=== PATIENT | male | born 1935 | race Caucasian/White ===

== ENCOUNTER 2020-02-23 11:36 | Inpatient (IN) ==
[2020-02-23] MEDS ORDERED: SODIUM CHLORIDE 0.9% 1000ML 1,000 ML IV SCH (12:00)
--- NOTE | 2020-02-23 12:04 | Emergency Department Note ---
Impression & Plan Acute respiratory failure with hypoxia, Afib, COVID-19, Pulmonary embolism ED Provider Note Provider: Ricci Mccurdy MD DATE OF SERVICE:02/23/2020 CHIEF COMPLAINT: Shortness of breath, weakness HISTORY OF PRESENT ILLNESS: Patient is a 84-year-old gentleman history of seizures maintained on phenobarb and Dilantin presenting here today via ambulance from home due to weakness and shortness of breath. Per the patient and the patient's over the past week he has been feeling more weak and had decreased intake. Her approximate last 2 to 3 days has had some shortness of breath and a slightly productive cough with vences sputum. reports that 2 days ago had a very brief seizure but that was not that abnormal for him. Is otherwise been taking his medications but not eating or drinking much. She discussed with him coming to the hospital yesterday but he declined until this morning. EMS reports the patient was found to be 80% on room air and was given a nebulizer of albuterol as well as 2 breathing prior to arrival here in the emergency department. He is satting in the low 90s on nonrebreather for them. Patient denies significant pain at this time. No fevers reported. Questionable sick contact in the family. No known Covid contacts reported. Patient was self with his respiratory issues is not the best historian. Difficult to obtain extensive history from the patient due to BiPAP mask and his difficulty hearing. REVIEW OF SYSTEMS: A total of 10 review of systems was obtained and negative except as stated above in the HPI. PAST MEDICAL HISTORY: As noted above MEDICATIONS: Reviewed home medications includes phenobarbital and Dilantin SOCIAL HISTORY: Lives at home with PHYSICAL EXAM: GENERAL: alert and oriented on stretcher with a nonrebreather, quite hard of hearing Head: normocephalic and atraumatic EYES: No injection, discharge or icterus. NECK: Trachea midline. ENT: Mucous membranes pink and moist. LUNGS: Airway patent. Mild increased work of breathing and tachypnea. Breath sounds diminished in the bases HEART: Regular rate and rhythm. No chest wall tenderness ABDOMEN: Soft and non-tender, without guarding or rebound. No massess SKIN: Acyanotic, warm, dry, without rashes EXTREMITIES: Without swelling, tenderness or deformity NEUROLOGICAL: No focal deficits. No aphasia. No facial droop or slurred speech. EK bpm atrial fibrillation. No PVCs noted. No acute ST segment elevation noted. QTc mildly prolonged. CONTINUOUS CARDIAC MONITORING: was ordered and showed a heart rate of 90 bpm in atrial fibrillation Patient's laboratory studies and imaging reviewed. Differential includes Infection, dehydration, metabolic abnormality, hypo/hyperglycemia, electrolyte disturbance, anemia, hypoxia, cardiac sources, intracerebral event, toxicologic, neurologic, as well as other pathologies. IMPRESSION/MEDICAL DECISION MAKING: Patient presents with a week of weakness 70s or shortness of breath now hypoxic requiring BiPAP due to his increased work of breathing and low oxygen levels on nonrebreather. Broad differential was entertained. Chest x-ray was ordered as well VBG, D-dimer to help exclude PE, basic labs, lactate, blood cultures, influenza testing, and rapid Covid testing. Patient does not appear to focal deficits. Patient does not appear meningitic. No fever upon arrival here 98.6 orally. Chest x-ray chest x-ray per radiology my review shows bilateral central pulmonary opacities concerning for multifocal pneumonitis. Patient does have a leukocytosis of 12. Given his respiratory issues requiring BiPAP did give an empiric dose of ceftriaxone for antibiotic coverage. Mild hyponatremia is noted . No significant renal dysfunction is noted. Mild AST and ALT elevation is noted. Phenobarb and phenytoin levels are just slightly subtherapeutic. Negative influenza testing. VBG without significant acidosis or hypercarbia. Lactate not elevated. Troponin is not elevated. EKG shows rate controlled atrial fibrillation. The chart does list a history of atrial fibrillation but the patient's not currently on anticoagulation or rate control medications. Testing returns testing returns positive for coronavirus. D-dimer is significantly elevated. Given the report of a seizure while he does not appear meningitic at this time I think is likely related to his underlying seizure disorder, with his reported headache will complete a CT of the head as well as a CT angio of the chest to exclude intracranial bleed and evaluate possible PE in the lungs that could be contributing. CT the head without acute intracranial bleed. Do not believe some mastoid effusion is contributing to current illness. CT of the chest with bilateral PEs we will start the patient on Lovenox at this point. Hospitalist was alerted for admission aware of these issues. Family was updated via phone. Patient has relayed to the hospitalist that he would like to be DNR/DNI. DIAGNOSIS: Acute hypoxic respiratory failure, coronavirus, atrial fibrillation, bilateral pulmonary embolisms DISPOSITION: Hospitalist will evaluate Critical Care I have personally spent 44 minutes of critical care time in the direct management of this patient. This includes bedside care, interpretation of diagnostic studies, and testing, discussion with consultants, patient, and family members, and other required patient management activities. These 44 minutes is in excess of all separately billable procedures. Past Med/Surg History Medical History (Updated 02/23/20 @ 14:16 by Ricci Mccurdy M.D.) No pertinent past medical history Surgical History History of tonsillectomy Allergies Allergies Allergy/AdvReac Type Severity Reaction Status Date / Time No Known Allergies Allergy Verified 06/01/19 14:34 Home Meds Home Medications Medication Instructions Recorded Confirmed melatonin 2.5 mg-pyridoxal 1 tab SUBLINGUAL QPM PRN tab 11/01/18 02/23/20 phosphate(vit B6) 338 mcg sublingual tablet phenytoin sodium extended 100 mg PO QAM 02/23/20 02/23/20 phenytoin sodium extended 200 mg PO QPM 02/23/20 02/23/20 Previous Rx's Medication Instructions Recorded lorazepam 0.5 mg tablet 0.5 mg PO DAILY PRN #30 tab 11/01/18 phenobarbital 32.4 mg tablet 64.8 mg PO DAILY #60 tab 10/11/19 Results & Data (ED) Vital Signs Vital Signs - 24 hr 02/23/20 11:40 02/23/20 11:50 02/23/20 12:00 Temperature Temperature Source Pulse Rate 96 H 101 H 108 H Pulse Rate from SpO2 Sensor 97 H 102 H Respiratory Rate 28 H 30 H 25 H Respiratory Effort / Characteristics Spontaneous Short of Breath Respiratory Depth Normal Respiratory Pattern Tachypnea Blood Pressure 134/76 125/76 Blood Pressure Mean 92 84 Pulse Oximetry 90 95 93 Oxygen Delivery Method BiPAP BiPAP Oxygen Flow Rate Fraction of Inspired Oxygen 50 Sepsis New/Unexplained Change in Mental Status Sepsis Action Taken by Nursing 02/23/20 12:04 02/23/20 13:00 02/23/20 13:30 Temperature 37.0 C Temperature Source Oral Pulse Rate 90 100 H 96 H Pulse Rate from SpO2 Sensor 87 88 Respiratory Rate 34 H 30 H 28 H Respiratory Effort / Characteristics Labored Respiratory Depth Respiratory Pattern Tachypnea Blood Pressure 125/76 129/76 114/71 Blood Pressure Mean 92 88 81 Pulse Oximetry 94 91 Oxygen Delivery Method Non-rebreather BiPAP Oxygen Flow Rate 15 Fraction of Inspired Oxygen Sepsis New/Unexplained Change in Mental Status Yes Sepsis Action Taken by Nursing Physician Notified 02/23/20 14:00 Temperature Temperature Source Pulse Rate 78 Pulse Rate from SpO2 Sensor 82 Respiratory Rate 26 H Respiratory Effort / Characteristics Respiratory Depth Respiratory Pattern Blood Pressure 128/67 Blood Pressure Mean 78 Pulse Oximetry 91 Oxygen Delivery Method BiPAP Oxygen Flow Rate Fraction of Inspired Oxygen Sepsis New/Unexplained Change in Mental Status Sepsis Action Taken by Nursing Laboratory Data Result diagrams: 02/23/20 12:00 02/23/20 12:00 Lab Results 02/23/20 02/23/20 02/23/20 Range/Units 11:50 11:50 12:00 WBC 12.67 H (4.8-10.8) K/uL RBC 3.71 L (4.7-6.1) M/uL Hgb 12.5 L (14.0-18.0) g/dL Hct 35.8 L (42-52) % MCV 96.5 (80-100) fL MCH 33.7 (25-34) pg MCHC 34.9 (32-36) g/dL RDW Std Deviation 45.5 (36.4-46.3) fL RDW Coeff of Theron 12.9 (11.5-14.5) % Plt Count 210 (130-400) K/uL MPV 11.0 H (7.4-10.4) fL Immature Gran % (Auto) 0.6 % Neut % (Auto) 74.4 % Lymph % (Auto) 17.6 % Monona % (Auto) 7.1 % Eos % (Auto) 0.1 % Baso % (Auto) 0.2 % Neut # (Auto) 9.44 H (1.4-6.5) K/uL Lymph # (Auto) 2.23 (1.2-3.4) K/uL Monona # (Auto) 0.90 H (0.11-0.59) K/uL Eos # (Auto) 0.01 (0-0.5) K/uL Baso # (Auto) 0.02 (0-0.2) K/uL Immature Gran # (Auto) 0.07 H (0.00-0.02) K/uL PT (9.0-12.0) Seconds INR (0.9-1.1) APTT (21.0-31.0) Seconds PTT Ratio D-Dimer (0-500) ug/L FEU VBG pH (7.36-7.41) VBG pCO2 (38-50) mmHg VBG pO2 mmHg VBG HCO3 mmol/L VBG O2 Saturation % VBG Base Excess mEq/L Barometric Pressure mm/Hg Sodium (136-145) mmol/L Potassium (3.5-5.1) mmol/L Chloride (98-107) mmol/L Carbon Dioxide (21-32) mmol/L Anion Gap (3-11) BUN (7-18) mg/dl Creatinine (0.6-1.4) mg/dl Est Cr Clr Drug Dosing Est GFR ( Amer) Est GFR (Non-Af Amer) BUN/Creatinine Ratio (10-20) Glucose (70-99) mg/dl Lactate (0.4-2.0) mmol/L Calcium (8.5-10.1) mg/dl Magnesium (1.8-2.4) mg/dl Total Bilirubin (0.2-1) mg/dl AST (15-37) U/L ALT (12-78) U/L Alkaline Phosphatase (45-117) U/L Troponin I (0-0.045) ng/ml Total Protein (6.4-8.2) gm/dl Albumin (3.4-5.0) gm/dl Globulin (2.5-4.0) gm/dl Albumin/Globulin Ratio (0.9-2) Procalcitonin (0-0.5) ng/ml Phenytoin (10-20) mcg/ml Phenobarbital (15-40) mcg/mL COVID-19 Eval Order Covid19 Done at [facility] COVID-19 PCR POSITIVE A* (Negative) Influ A Molecular Assay (Negative) Influ B Molecular Assay (Negative) 02/23/20 02/23/20 02/23/20 Range/Units 12:00 12:00 12:00 WBC (4.8-10.8) K/uL RBC (4.7-6.1) M/uL Hgb (14.0-18.0) g/dL Hct (42-52) % MCV (80-100) fL MCH (25-34) pg MCHC (32-36) g/dL RDW Std Deviation (36.4-46.3) fL RDW Coeff of Theron (11.5-14.5) % Plt Count (130-400) K/uL MPV (7.4-10.4) fL Immature Gran % (Auto) % Neut % (Auto) % Lymph % (Auto) % Monona % (Auto) % Eos % (Auto) % Baso % (Auto) % Neut # (Auto) (1.4-6.5) K/uL Lymph # (Auto) (1.2-3.4) K/uL Monona # (Auto) (0.11-0.59) K/uL Eos # (Auto) (0-0.5) K/uL Baso # (Auto) (0-0.2) K/uL Immature Gran # (Auto) (0.00-0.02) K/uL PT 11.8 (9.0-12.0) Seconds INR 1.1 (0.9-1.1) APTT 28.8 (21.0-31.0) Seconds PTT Ratio 1.0 D-Dimer [id number] H* (0-500) ug/L FEU VBG pH (7.36-7.41) VBG pCO2 (38-50) mmHg VBG pO2 mmHg VBG HCO3 mmol/L VBG O2 Saturation % VBG Base Excess mEq/L Barometric Pressure mm/Hg Sodium 131 L (136-145) mmol/L Potassium 3.9 (3.5-5.1) mmol/L Chloride 94 L (98-107) mmol/L Carbon Dioxide 25 (21-32) mmol/L Anion Gap 13.0 H (3-11) BUN 24 H (7-18) mg/dl Creatinine 1.02 (0.6-1.4) mg/dl Est Cr Clr Drug Dosing Not Reportable Est GFR ( Amer) 77.9 Est GFR (Non-Af Amer) 67.2 BUN/Creatinine Ratio 23.1 H (10-20) Glucose 113 H (70-99) mg/dl Lactate (0.4-2.0) mmol/L Calcium 8.8 (8.5-10.1) mg/dl Magnesium 2.5 H (1.8-2.4) mg/dl Total Bilirubin 0.5 (0.2-1) mg/dl AST 150 H (15-37) U/L ALT 109 H (12-78) U/L Alkaline Phosphatase 100 (45-117) U/L Troponin I < 0.015 (0-0.045) ng/ml Total Protein 7.3 (6.4-8.2) gm/dl Albumin 2.4 L (3.4-5.0) gm/dl Globulin 4.9 H (2.5-4.0) gm/dl Albumin/Globulin Ratio 0.5 L (0.9-2) Procalcitonin (0-0.5) ng/ml Phenytoin 7.7 L (10-20) mcg/ml Phenobarbital 14.3 L (15-40) mcg/mL COVID-19 Eval Order COVID-19 PCR (Negative) Influ A Molecular Assay (Negative) Influ B Molecular Assay (Negative) 02/23/20 02/23/20 02/23/20 Range/Units 12:00 12:09 12:09 WBC (4.8-10.8) K/uL RBC (4.7-6.1) M/uL Hgb (14.0-18.0) g/dL Hct (42-52) % MCV (80-100) fL MCH (25-34) pg MCHC (32-36) g/dL RDW Std Deviation (36.4-46.3) fL RDW Coeff of Theron (11.5-14.5) % Plt Count (130-400) K/uL MPV (7.4-10.4) fL Immature Gran % (Auto) % Neut % (Auto) % Lymph % (Auto) % Monona % (Auto) % Eos % (Auto) % Baso % (Auto) % Neut # (Auto) (1.4-6.5) K/uL Lymph # (Auto) (1.2-3.4) K/uL Monona # (Auto) (0.11-0.59) K/uL Eos # (Auto) (0-0.5) K/uL Baso # (Auto) (0-0.2) K/uL Immature Gran # (Auto) (0.00-0.02) K/uL PT (9.0-12.0) Seconds INR (0.9-1.1) APTT (21.0-31.0) Seconds PTT Ratio D-Dimer (0-500) ug/L FEU VBG pH 7.38 (7.36-7.41) VBG pCO2 44 (38-50) mmHg VBG pO2 28 mmHg VBG HCO3 26 mmol/L VBG O2 Saturation < 60.0 % VBG Base Excess 0.5 mEq/L Barometric Pressure 737.5 mm/Hg Sodium (136-145) mmol/L Potassium (3.5-5.1) mmol/L Chloride (98-107) mmol/L Carbon Dioxide (21-32) mmol/L Anion Gap (3-11) BUN (7-18) mg/dl Creatinine (0.6-1.4) mg/dl Est Cr Clr Drug Dosing Est GFR ( Amer) Est GFR (Non-Af Amer) BUN/Creatinine Ratio (10-20) Glucose (70-99) mg/dl Lactate 1.8 (0.4-2.0) mmol/L Calcium (8.5-10.1) mg/dl Magnesium (1.8-2.4) mg/dl Total Bilirubin (0.2-1) mg/dl AST (15-37) U/L ALT (12-78) U/L Alkaline Phosphatase (45-117) U/L Troponin I (0-0.045) ng/ml Total Protein (6.4-8.2) gm/dl Albumin (3.4-5.0) gm/dl Globulin (2.5-4.0) gm/dl Albumin/Globulin Ratio (0.9-2) Procalcitonin 0.26 (0-0.5) ng/ml Phenytoin (10-20) mcg/ml Phenobarbital (15-40) mcg/mL COVID-19 Eval Order COVID-19 PCR (Negative) Influ A Molecular Assay (Negative) Influ B Molecular Assay (Negative) 02/23/20 Range/Units Unknown WBC (4.8-10.8) K/uL RBC (4.7-6.1) M/uL Hgb (14.0-18.0) g/dL Hct (42-52) % MCV (80-100) fL MCH (25-34) pg MCHC (32-36) g/dL RDW Std Deviation (36.4-46.3) fL RDW Coeff of Theron (11.5-14.5) % Plt Count (130-400) K/uL MPV (7.4-10.4) fL Immature Gran % (Auto) % Neut % (Auto) % Lymph % (Auto) % Monona % (Auto) % Eos % (Auto) % Baso % (Auto) % Neut # (Auto) (1.4-6.5) K/uL Lymph # (Auto) (1.2-3.4) K/uL Monona # (Auto) (0.11-0.59) K/uL Eos # (Auto) (0-0.5) K/uL Baso # (Auto) (0-0.2) K/uL Immature Gran # (Auto) (0.00-0.02) K/uL PT (9.0-12.0) Seconds INR (0.9-1.1) APTT (21.0-31.0) Seconds PTT Ratio D-Dimer (0-500) ug/L FEU VBG pH (7.36-7.41) VBG pCO2 (38-50) mmHg VBG pO2 mmHg VBG HCO3 mmol/L VBG O2 Saturation % VBG Base Excess mEq/L Barometric Pressure mm/Hg Sodium (136-145) mmol/L Potassium (3.5-5.1) mmol/L Chloride (98-107) mmol/L Carbon Dioxide (21-32) mmol/L Anion Gap (3-11) BUN (7-18) mg/dl Creatinine (0.6-1.4) mg/dl Est Cr Clr Drug Dosing Est GFR ( Amer) Est GFR (Non-Af Amer) BUN/Creatinine Ratio (10-20) Glucose (70-99) mg/dl Lactate (0.4-2.0) mmol/L Calcium (8.5-10.1) mg/dl Magnesium (1.8-2.4) mg/dl Total Bilirubin (0.2-1) mg/dl AST (15-37) U/L ALT (12-78) U/L Alkaline Phosphatase (45-117) U/L Troponin I (0-0.045) ng/ml Total Protein (6.4-8.2) gm/dl Albumin (3.4-5.0) gm/dl Globulin (2.5-4.0) gm/dl Albumin/Globulin Ratio (0.9-2) Procalcitonin (0-0.5) ng/ml Phenytoin (10-20) mcg/ml Phenobarbital (15-40) mcg/mL COVID-19 Eval Order COVID-19 PCR (Negative) Influ A Molecular Assay Negative (Negative) Influ B Molecular Assay Negative (Negative) Administered Medications Discontinued Medications Dexamethasone (Dexamethasone Sod Inj 10 Mg/Ml Vial) 6 mg IV NOW ONE Stop: 02/23/20 12:51 Last Admin: 02/23/20 13:10 Dose: 6 mg Documented by: [id number] Sodium Chloride (Nss 1000ml) 1,000 mls @ 999 mls/hr IV .Q1H1M NANO Stop: 02/23/20 13:00 Last Admin: 02/23/20 13:10 Dose: 999 mls/hr Documented by: [id number] Ceftriaxone Sodium (Rocephin) 1,000 mg in 50 mls @ 100 mls/hr IV NOW STA Stop: 02/23/20 13:19 Last Infusion: 02/23/20 14:01 Dose: 0 mls/hr Documented by: [id number] Admin: 02/23/20 13:10 Dose: 100 mls/hr Documented by: [id number] Ioversol (Optiray 320 125ml) 120 ml IV ONCE ONE Stop: 02/23/20 13:43 Last Admin: 02/23/20 13:43 Dose: 120 ml Documented by: [id number] Discharge Plan Visit Data Chief Complaint: Shortness of Breath/Dyspnea Stated Complaint: weakness ED Provider: Ricci Mccurdy Discharge Problem: Acute respiratory failure with hypoxia, Afib, COVID-19, Pulmonary embolism Patient Disposition: Admitted As Inpatient Condition: Critical Forms Stand Alone Forms: My [employer] Prescriptions Prescriptions: No Action phenobarbital 32.4 mg tablet 64.8 mg PO DAILY Qty: 60 RF: 5 melatonin-pyridoxal phos (B6) [Melatonin-B6 (pyridoxal phos)] 2.5 mg- 338 mcg tablet, sublingual 1 tab sublingual QPM PRN (Reason: Insomnia) RF: 0 lorazepam 0.5 mg tablet 0.5 mg PO DAILY PRN (Reason: anxiety) Qty: 30 RF: 0 phenytoin sodium extended 100 mg capsule 200 mg PO QPM RF: 0 phenytoin sodium extended 100 mg capsule 100 mg PO QAM RF: 0 Referrals Referrals: Anne Escobar CRNP [Primary Care Provider] - Discharge Problem: Afib Qualifiers: Atrial fibrillation type: unspecified Qualified Code(s): I48.91 - Unspecified atrial fibrillation Pulmonary embolism Qualifiers: Pulmonary embolism type: unspecified Chronicity: acute Acute cor pulmonale presence: unspecified Qualified Code(s): I26.99 - Other pulmonary embolism without acute cor pulmonale
[2020-02-23 12:22] LABS: Base Excess VBG 0.5 mEq/L; HCO3 VBG 26 mmol/L; Oxygen Saturation VBG < 60.0 %; PCO2 VBG 44 mmHg (38-50); PO2 VBG 28 mmHg; pH VBG 7.38 (7.36-7.41)
--- NOTE | 2020-02-23 12:28 | XRay Report ---
XR chest 1V portable CLINICAL HISTORY: SEPSIS COMPARISON STUDY: 05/13/2015 FINDINGS: The heart is normal in size. There are bilateral interstitial opacities suspicious for a mu ltifocal pneumonitis. There are no significant pleural effusions. Clinical and radiographic follow-up is recommended.[ IMPRESSION: 1. Bilateral interstitial pulmonary opacities, suspicious for a multifocal pneumonitis. An atypical a ppearance of interstitial pulmonary edema could appear similar but is felt to be statistically less l ikely. Clinical and radiographic follow-up recommended. ACT 112: Negative or not required by law. Electronically signed by: Saurabh Hutchins M.D. 02/23/2020 12:26 PM
[2020-02-23 12:32] LABS: Basophils # (auto) 0.02 K/uL (0-0.2); Basophils % (auto) 0.2 %; Eosinophils # (auto) 0.01 K/uL (0-0.5); Eosinophils % (auto) 0.1 %; Hematocrit (blood only) 35.8 % (42-52); Hemoglobin 12.5 g/dL (14.0-18.0); Immature Granulocytes # (auto) 0.07 K/uL (0.00-0.02); Immature Granulocytes % (auto) 0.6 %; Lymphocytes # (auto) 2.23 K/uL (1.2-3.4); Lymphocytes % (auto) 17.6 %; Mean Corpuscular Hemoglobin 33.7 pg (25-34); Mean Corpuscular Hgb Conc 34.9 g/dL (32-36); Mean Corpuscular Volume 96.5 fL (80-100); Monocytes % (auto) 7.1 %; Neutrophils # (auto) 9.44 K/uL (1.4-6.5); Neutrophils % (auto) 74.4 %; Platelet Count 210 K/uL (130-400); RDW Coefficient of Variation 12.9 % (11.5-14.5); RDW Standard Deviation 45.5 fL (36.4-46.3); Red Blood Count 3.71 M/uL (4.7-6.1); White Blood Count 12.67 K/uL (4.8-10.8)
[2020-02-23 12:44] LABS: Influenza A virus by PCR Negative (Negative); Influenza B virus by PCR Negative (Negative)
[2020-02-23 12:47] LABS: INR 1.1 (0.9-1.1); Partial Thromboplastin Time 28.8 Seconds (21.0-31.0); Prothrombin Time 11.8 Seconds (9.0-12.0)
[2020-02-23 12:50] LABS: Alanine Aminotransferase 109 U/L (12-78); Albumin Level 2.4 gm/dl (3.4-5.0); Aspartate Aminotransferase 150 U/L (15-37); BUN Creatinine Ratio 23.1 (10-20); Blood Urea Nitrogen 24 mg/dl (7-18); Calcium 8.8 mg/dl (8.5-10.1); Carbon Dioxide 25 mmol/L (21-32); Chloride 94 mmol/L (98-107); Est GFR (African American) 77.9; Est GFR (Non-African American) 67.2; Glucose 113 mg/dl (70-99); Magnesium 2.5 mg/dl (1.8-2.4); Potassium 3.9 mmol/L (3.5-5.1); Sodium 131 mmol/L (136-145)
[2020-02-23] MEDS ORDERED: cefTRIAXone SODIUM 1,000 MG/50 ML BAG IV STA (12:50)
[2020-02-23] MEDS ORDERED: DEXAMETHASONE SOD INJ 10 MG/ML VIAL IV ONE (12:50)
[2020-02-23 12:55] LABS: Albumin Globulin Ratio 0.5 (0.9-2); Alkaline Phosphatase 100 U/L (45-117); Bilirubin,Total 0.5 mg/dl (0.2-1); Globulin 4.9 gm/dl (2.5-4.0); Phenytoin (Dilantin) 7.7 mcg/ml (10-20); Total Protein 7.3 gm/dl (6.4-8.2); Troponin I < 0.015 ng/ml (0-0.045)
[2020-02-23 13:13] LABS: D Dimer 17040 ug/L FEU (0-500)
[2020-02-23] MEDS ORDERED: OPTIRAY 320 125ml IV ONE (13:42)
--- NOTE | 2020-02-23 14:01 | CT Scan Report ---
CT head/brain wo con CLINICAL HISTORY: headache, seizure COMPARISON STUDY: MRI dated 05/13/2015 TECHNIQUE: Axial CT of the brain is performed from the vertex to the skull base. IV contrast was not administered for this examination. A dose lowering technique was utilized adhering to the principles of ALARA. CT DOSE: FINDINGS: No intra or extra-axial mass lesions are visualized. There is no CT evidence of acute cortical infarc tion. There is no evidence of midline shift. There is no acute hemorrhage. No calvarial fractures ar e visualized. There are patchy white matter hypodensities likely on a small vessel basis. There is no evidence of pathologic ventricular dilatation. There is bilateral maxillary sinus mucosal disease. There is a left mastoid effusion. There is fluid within the left middle ear cavity. IMPRESSION: 1. No acute intracranial findings 2. Left mastoid effusion. Fluid within the left middle ear cavity. ACT 112: Negative or not required by law. Electronically signed by: Saurabh Hutchins M.D. 02/23/2020 2:00 PM
--- NOTE | 2020-02-23 14:07 | CT Scan Report ---
CT ANGIOGRAM OF THE CHEST CLINICAL HISTORY: PE, COVID+, +dimer, sob hypoxia COMPARISON STUDY: Chest x-ray dated 02/23/2020 TECHNIQUE: Following the IV administration of 120 mL of Optiray-320, CT angiogram of the thorax was p erformed from the thoracic inlet to the lung bases utilizing the pulmonary embolus protocol. Images a re reviewed in the axial, sagittal, and coronal planes. IV contrast was administered without complica tion. MIP imaging was performed. A dose lowering technique was utilized adhering to the principles o f ALARA. CT DOSE: 882.54 mGy.cm FINDINGS: No pathologically enlarged axillary mediastinal or hilar lymph nodes were visualized. There is mild dilatation of the ascending thoracic aorta which measures 4 cm. There are bilateral pulmonary artery filling defects indicative of acute pulmonary embolism. There are small pleural effusions. There are bilateral groundglass pulmonary opacities, likely second elin to a pneumonitis. The bones are osteopenic. There is an L1 and T7 vertebral body compression fracture. These are likely old. IMPRESSION: 1. Acute bilateral pulmonary embolism 2. Small bilateral pleural effusions 3. Bilateral groundglass pulmonary opacities, likely secondary to a multifocal pneumonitis 4. Mild dilatation of ascending thoracic aorta which measures 4 cm ACT 112: Negative or not required by law. Electronically signed by: Saurabh Hutchins M.D. 02/23/2020 2:06 PM
[2020-02-23] MEDS ORDERED: ENOXAPARIN 100 MG/1ML SYR SQ STA (14:16)
[2020-02-23] MEDS ORDERED: LORazepam 1 MG/2 ML VIAL IV PRN (16:10)
[2020-02-23] MEDS ORDERED: LORazepam 0.5 MG TAB PO PRN (16:10)
[2020-02-23] MEDS ORDERED: ONDANSETRON INJ 2 MG/ML 2 ML VIAL IV PRN (16:10)
[2020-02-23] MEDS ORDERED: AZITHROMYCIN 250 MG TAB PO ONE (17:00)
[2020-02-23] MEDS ORDERED: REMDESIVIR 200 MG in SODIUM CHLORIDE 0.9% 210 ML IV ONE (17:00)
--- NOTE | 2020-02-23 17:05 | History & Physical Report ---
Date of Service February 23, 2020 Assessment & Plan (1) COVID-19: Qualifies as severe as he is on BiPap with increased work of breathing. - Dexamethasone, remdesivir, and convalescent plama all ordered. Discussed plasma with daughter and son-in-law who are in agreement. is unavailable as she does not have a telephone in her house. - Please call Niranjan Pemberton (son-in-law) whose is Melvi at [phone] for updates. This is the only phone number that should be consistently answered. - Supplemental O2 PRN; presently requiring non-rebreather and BiPap. - Patient is DNR/DNI. This was confirmed with him and daughter & son-in-law who report it is consistent with prior wishes. - Also treating with ceftriaxone & azithromycin for superimposed CAP. - MRSA swab pending (2) Pulmonary embolism: CTA chest on 02/22 shows acute bilateral PEs. - Lovenox given in the ED - Continue Lovenox 70 mg SQ BID - TTE for right-heart strain (3) Afib: EKG on admission shows afib with controlled rate. Unclear what duration of this is. - Lovenox as above for anticoagulation for PEs - Monitor HRs; not on any rate-control at home (4) Seizure disorder: reported he had a potential seizure earlier this week. Phenytoin level and phenobarbital levels both below therapeutic ranges. - Continue home phenytoin and phenobarbital as compliance is unclear. - Ativan PRN (5) Hepatitis: LFTs are 150/109. Normal Tbili and alk phos. Possibly mild hepatitis from Covid. Discussed with pharmacy and this does not preclude remdesivir. - Monitor (6) Hyponatremia: Na was 131 on admission. Seems stable from a prior Na in 2019. 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 Mild and chronic enough that I doubt it is a major clinical concern at present. - Monitor (7) Dementia: Per , has some memory issues. For me, he knows self and that he is in a hospital in [place]. Unclear if this is his baseline. - Monitor Admission and Anticipated Discharge Date Admission Date: February 23, 2020 History of Present Illness Primary Care Provider: FRANCK Fuchs 84yo M w/ hx of seizures who presents for Covid pneumonia. He has dementia and a poor historian. Per report from the ED provider who gathered the history from his , he had not been feeling well for about 1 week, then this morning reported increasing shortness of breath and was brought to the hospital. Initially, it sounds as though he was fairly lethargic, though he was able to wake up for me. He was able to tell me he was in a hospital in [place] and his name. He denies fevers or chills, but does report shortness of breath that he denies has significantly improved while on BiPap. I was unable to speak to the because she does not have access to a telephone in her house, but did confirm these details with one of his daughters and son-in-law. Allergies Allergy/AdvReac Type Severity Reaction Status Date / Time No Known Allergies Allergy Verified 06/01/19 14:34 Home Medications Home Medications Medication Instructions Recorded Confirmed Type lorazepam 0.5 mg tablet 0.5 mg PO DAILY PRN #30 tab 11/01/18 02/23/20 Rx melatonin 2.5 mg-pyridoxal 1 tab SUBLINGUAL QPM PRN tab 11/01/18 02/23/20 History phosphate(vit B6) 338 mcg sublingual tablet phenobarbital 32.4 mg tablet 64.8 mg PO DAILY #60 tab 10/11/19 02/23/20 Rx phenytoin sodium extended 100 mg PO QAM 02/23/20 02/23/20 History phenytoin sodium extended 200 mg PO QPM 02/23/20 02/23/20 History Past Med/Surg History Medical History Afib Seizure disorder Surgical History History of tonsillectomy Family History Other Family history non-contributory Social History Smoking Status: Never smoker Second Hand Exposure: No; Do You Dip or Chew Tobacco: No; Tobacco Cessation Education Requested by Patient: No Hx Alcohol Use: No Hx Substance Use: No Preferred Language: Hong Konger Communication Ability: Effective Coordinator Of Online Programs Required: No Beliefs That Will Affect Care: None Current Living Situation Comment: unk Other Information That Helps Us Care for You: No Feels Safe at Home: Yes Safety Concerns: Feels Safe At This Time Assistive Devices: Oxygen - Continuous Review of Systems Review of Systems: All systems reviewed & are unremarkable except as noted in HPI & below Physical Exam Constitutional: WD/WN, vitals as above + acute distress and + lethargic Eyes: EOM intact bilaterally; no conjunctival abnormality ENMT: external ear and nose normal, oropharynx normal Neck: trachea midline, no thyromegaly normal visual inspection Respiratory: + respiratory distress and + tachypneic; no cough Auscultation: + crackles; no wheezes Cardiovascular: RRR, no murmur, no edema Gastrointestinal (Abdomen): Inspection/Auscultation: abdomen normal to inspection; abdomen not distended Musculoskeletal: no cyanosis or clubbing, extremities motor strength 5/5 Skin: no rashes, warm and dry Neurologic: moves all extremities and awake Psychiatric: Orientation: oriented to person, oriented to place and cooperative; + not alert Results & Data Results & Data ([facility]) Vital Signs (Past 12 Hours) Vital Signs Temp Pulse Resp BP Pulse Ox 02/23/20 16:20 76 02/23/20 15:55 81 31 H 94 02/23/20 15:00 84 18 114/67 95 02/23/20 14:30 100 H 24 123/68 93 02/23/20 14:00 78 27 H 128/67 94 02/23/20 13:30 96 H 28 H 114/71 91 02/23/20 13:00 100 H 30 H 129/76 02/23/20 12:04 37.0 C 90 34 H 125/76 94 02/23/20 12:00 108 H 25 H 125/76 93 02/23/20 11:50 101 H 36 H 95 02/23/20 11:40 96 H 28 H 134/76 90 PG Care Time/CCT Total # of Minutes Spent Total Time Spent with Patient: Total time spent is greater than 50% in coordination of care (as documented) at patient's floor/unit and/or counseling patient: Coding Level of Care Code 59547 Initial Inpt Care Lvl 3 Diagnoses COVID-19 U07.1 Pulmonary embolism I26.99 Acute cor pulmonale presence: unspecified Chronicity: acute Pulmonary embolism type: unspecified Afib I48.91 Atrial fibrillation type: unspecified Seizure disorder G40.909 Hepatitis K75.9 Hyponatremia E87.1 Dementia F03.90 (1) Pulmonary embolism Acute cor pulmonale presence: unspecified Chronicity: acute Pulmonary embolism type: unspecified Qualified Code(s): I26.99 - Other pulmonary embolism without acute cor pulmonale (2) Afib Atrial fibrillation type: unspecified Qualified Code(s): I48.91 - Unspecified atrial fibrillation
[2020-02-23] MEDS: SODIUM CHLORIDE 0.9% 1000ML 1,000 ML IV SCH (17:19)
[2020-02-23] MEDS: PHENYTOIN SODIUM ER 100 MG CAP PO SCH (19:57)
[2020-02-24] MEDS: ACETAMINOPHEN 325 MG TAB PO PRN (05:01)
[2020-02-24 06:08] LABS: Hematocrit (blood only) 33.6 % (42-52); Hemoglobin 11.7 g/dL (14.0-18.0); Mean Corpuscular Hemoglobin 33.7 pg (25-34); Mean Corpuscular Hgb Conc 34.8 g/dL (32-36); Mean Corpuscular Volume 96.8 fL (80-100); Mean Platelet Volume 10.7 fL (7.4-10.4); Platelet Count 225 K/uL (130-400); RDW Coefficient of Variation 13.1 % (11.5-14.5); RDW Standard Deviation 46.1 fL (36.4-46.3); Red Blood Count 3.47 M/uL (4.7-6.1); White Blood Count 10.27 K/uL (4.8-10.8)
[2020-02-24 06:40] LABS: Albumin Globulin Ratio 0.5 (0.9-2); Albumin Level 2.2 gm/dl (3.4-5.0); BUN Creatinine Ratio 26.3 (10-20); Bilirubin,Total 0.4 mg/dl (0.2-1); Calcium 8.2 mg/dl (8.5-10.1); Est GFR (African American) 104.9; Est GFR (Non-African American) 90.5; Globulin 4.6 gm/dl (2.5-4.0); Magnesium 2.5 mg/dl (1.8-2.4); Phosphorus 3.1 mg/dl (2.5-4.9); Potassium 4.3 mmol/L (3.5-5.1); Total Protein 6.8 gm/dl (6.4-8.2)
[2020-02-24] MEDS: SODIUM CHLORIDE 0.9% 1000ML 1,000 ML IV SCH ×2 (07:56→09:04)
[2020-02-24] MEDS ORDERED: dexAMETHasone 1 MG TAB PO SCH (08:00)
[2020-02-24] MEDS: PHENYTOIN SODIUM ER 100 MG CAP PO SCH ×2 (09:02→20:17)
[2020-02-24] MEDS ORDERED: cefTRIAXone SODIUM 1,000 MG in DEXTROSE 5% 50 ML IV SCH (12:00)
[2020-02-24] MEDS ORDERED: cefTRIAXone SODIUM 2,000 MG in DEXTROSE 5% 50 ML IV SCH (12:00)
[2020-02-24] MEDS: cefTRIAXone SODIUM 2,000 MG in DEXTROSE 5% 50 ML IV SCH (12:12)
--- NOTE | 2020-02-24 12:24 | Electrocardiogram Report ---
Test Reason : Blood Pressure : / mmHG Vent. Rate : 098 BPM Atrial Rate : 166 BPM P-R Int : 000 ms QRS Dur : 108 ms QT Int : 368 ms P-R-T Axes : 000 092 064 degrees QTc Int : 469 ms Atrial fibrillation Rightward axis Nonspecific T wave abnormality Abnormal ECG When compared with ECG of 17-MAY-2015 07:13, Atrial fibrillation has replaced Sinus rhythm Vent. rate has increased BY 44 BPM Nonspecific T wave abnormality now evident in Inferior leads Confirmed by Jerald Gonzales ([id number]) on 02/24/2020 12:24:25 PM Referred By: REFERRED SELF Confirmed By:Jerald Gonzales
[2020-02-24] MEDS ORDERED: SODIUM CHLORIDE 0.9% 10ML FLUSH IV SCH (14:45)
[2020-02-24] MEDS: ENOXAPARIN 80 MG/0.8 ML SYR SQ SCH (15:03)
[2020-02-24] MEDS: AZITHROMYCIN 250 MG TAB PO SCH (15:05)
--- NOTE | 2020-02-24 22:01 | Hospitalist Progress Note ---
Date of Service February 24, 2020 Assessment & Plan (1) Acute respiratory failure with hypoxia: 2nd to severe COVID-19 pneumonia along with PEs. see below. continue high-flow NC. (2) Pneumonia due to COVID-19 virus: severe, extensive b/l pneumonia on imaging and examination. s/p convalescent plasma. day #2 of 10 of decadron 6mg daily. patient received 200mg load of remdesivir on 02/22 but 4 additional days not ordered. will order the remainder 100mg doses. flutter valve. incentive spirometry. try proning twice daily as tolerated. agree with IV abx - rocephin/zithromax - to cover for bacterial superinfection. increase the rocephin to 2gm/day. recheck d-dimer in am. (3) COVID-19: Severe disease - respiratory failure, extensive pneumonia, b/l PEs, transaminitis, etc. Prognosis is very guarded. I spoke with Niranjan Pemberton (son-in-law) and his Melvi (patient's daughter) at [phone] this evening. I explained current situation, discussed severity of his illness, and told them I was quite concerned about his health. They voiced understanding. They again confirmed he is DNR. Questions answered. (4) Pulmonary embolism: CTA chest on 02/22 shows acute bilateral PEs. Cont lovenox 70mg SC q12h echo pending (5) Afib: unknown duration but suspect chronic/permanent but can't prove such. rates controlled without AV letty agents. on lovenox for anticoagulation. echo pending. repeat a TSH sometime this admission. K/mag wnl. (6) Seizure disorder: reported he had a potential seizure earlier this week. Phenytoin level and phenobarbital levels both below therapeutic ranges. Compliance is questionable given his levels. Cont dilantin and phenobarbital as previous. Ativan IV prn. Seizure precautions. (7) Hepatitis: Transaminitis - likely due to COVID-19 infection. Can't rule out other causes. Trend. (8) Hyponatremia: Na was 131 on admission. Now 134 after isotonic fluids. Patient euvolemic on exam today - stop IV fluids. Na was 131 in 2019. Some of his hyponatremia perhaps chronic - SIADH? other? repeat BMP in am. stop IVF. (9) Dementia: baseline uncertain but pt's told admitting MD that his memory is poor. appears to have metabolic encephalopathy from COVID as well. (10) Metabolic encephalopathy: 2nd to COVID-19 infection, hypoxia, etc. supportive care. (11) DVT prophylaxis: lovenox BID updated Niranjan and Melvi Pemberton at [phone] (daughter to patient and son-in-law) only family members with phone daily phone call to them will be needed prognosis very guarded DNR Admission and Anticipated Discharge Date Admission Date: February 23, 2020 Subjective patient awake but quite confused during the visit. could not tell me where we were. I asked how long he had been sick at home and he stated "a year.". knew it was 2019 but otherwise was disoriented. he was quite dyspneic with answering questions. when asked if he had pain in any location he stated no. Review of Systems Review of Systems: Unobtainable due to cognitive status Physical Exam Constitutional: + acute distress (Tachypneic, any movement in bed would cause retractions/etc), + ill appearing, + altered mental status and + frail appearing ENMT: external ear and nose normal, oropharynx normal Respiratory: + respiratory distress, + retractions, + uses accessory muscles, + cough and + tachypneic Auscultation: + rales; no wheezes Cardiovascular: Rate/Rhythm: regular rate and + irregularly irregular Heart Sounds: normal S1 and normal S2; no murmur Vessels: posterior tibial pulses present and dorsalis pedis pulses present; no JVD Extremities: no edema Gastrointestinal (Abdomen): normal bowel sounds, soft, nontender, no hepatosplenomegaly Skin: no rashes, warm and dry Psychiatric: Orientation: alert and oriented to person; + not oriented to place and + not oriented to time Results & Data Results & Data ([facility]) Vital Signs (Past 12 Hours) Vital Signs Temp Pulse Pulse Resp BP Pulse Ox 02/24/20 21:38 85 22 112/68 91 02/24/20 19:46 86 22 90 02/24/20 18:24 83 115/70 92 02/24/20 15:15 90 22 90 02/24/20 15:09 36.7 C 90 22 95/71 L 90 02/24/20 14:47 76 02/24/20 12:00 36.9 C 83 18 112/71 94 02/24/20 11:17 75 20 96 Laboratory Results Laboratory Results - last 24 hr 02/23/20 02/24/20 02/24/20 16:59 05:30 05:30 WBC 10.27 RBC 3.47 L Hgb 11.7 L Hct 33.6 L MCV 96.8 MCH 33.7 MCHC 34.8 RDW Std Deviation 46.1 RDW Coeff of Theron 13.1 Plt Count 225 MPV 10.7 H Sodium 134 L Potassium 4.3 Chloride 102 Carbon Dioxide 25 Anion Gap 7.0 BUN 16 Creatinine 0.63 D Est Cr Clr Drug Dosing 86.0 Est GFR ( Amer) 104.9 Est GFR (Non-Af Amer) 90.5 BUN/Creatinine Ratio 26.3 H Glucose 105 H Calcium 8.2 L Phosphorus 3.1 Magnesium 2.5 H Total Bilirubin 0.4 AST 126 H ALT 107 H Alkaline Phosphatase 96 Total Protein 6.8 Albumin 2.2 L Globulin 4.6 H Albumin/Globulin Ratio 0.5 L Blood Type A Positive Antibody Screen NEGATIVE PG Care Time/CCT Total # of Minutes Spent Total Time Spent with Patient: Total time spent is greater than 50% in coordination of care (as documented) at patient's floor/unit and/or counseling patient: Coding Level of Care Code 46284 Subseq Hosp Care Lvl 3 Diagnoses Acute respiratory failure with hypoxia J96.01 Pneumonia due to COVID-19 virus U07.1; J12.89 COVID-19 U07.1 Pulmonary embolism I26.99 Acute cor pulmonale presence: unspecified Chronicity: acute Pulmonary embolism type: unspecified Afib I48.91 Atrial fibrillation type: unspecified Seizure disorder G40.909 Hepatitis K75.9 Hyponatremia E87.1 Dementia F03.90 Metabolic encephalopathy G93.41 DVT prophylaxis Z29.9 (1) Afib Atrial fibrillation type: unspecified Qualified Code(s): I48.91 - Unspecified atrial fibrillation (2) Pulmonary embolism Acute cor pulmonale presence: unspecified Chronicity: acute Pulmonary embolism type: unspecified Qualified Code(s): I26.99 - Other pulmonary embolism without acute cor pulmonale
[2020-02-25] MEDS: ENOXAPARIN 80 MG/0.8 ML SYR SQ SCH ×2 (01:43→14:38)
[2020-02-25 06:57] LABS: BUN Creatinine Ratio 28.1 (10-20); Calcium 8.1 mg/dl (8.5-10.1); Creatinine Clr Calc Pharmacy 79.7 ml/min; Est GFR (African American) 104.2; Est GFR (Non-African American) 89.9; Potassium 3.9 mmol/L (3.5-5.1)
[2020-02-25 06:58] LABS: D Dimer > 35200 ug/L FEU (0-500)
[2020-02-25] MEDS: PHENYTOIN SODIUM ER 100 MG CAP PO SCH ×2 (08:18→20:32)
[2020-02-25] MEDS: dexAMETHasone 6 MG in SYRINGE 0 ML IV SCH (08:19)
[2020-02-25] MEDS: REMDESIVIR 100mg: Days 2-5 IV SCH (08:19)
[2020-02-25] MEDS: NSS 30mL Flush, Days 1-5 IV SCH (09:28)
--- NOTE | 2020-02-25 10:27 | XCELERA ---
[id number]
[2020-02-25] MEDS: cefTRIAXone SODIUM 2,000 MG in DEXTROSE 5% 50 ML IV SCH (11:53)
--- NOTE | 2020-02-25 14:34 | Hospitalist Progress Note ---
Date of Service February 25, 2020 Assessment & Plan (1) Acute respiratory failure with hypoxia: 2nd to severe COVID-19 pneumonia along with PEs. see below. continue high-flow NC, he is on 35L and 75%, not always compliant, he is confused (2) Pneumonia due to COVID-19 virus: severe, extensive b/l pneumonia on imaging and examination. s/p convalescent plasma. day #3 of 10 of decadron 6mg daily. patient received 200mg load of remdesivir on 02/22, continue 100mg daily, finish on 02/26 flutter valve. incentive spirometry. try proning twice daily as tolerated. continue Rocephin and Zithromax for 5-7 days total (3) COVID-19: Severe disease - respiratory failure, extensive pneumonia, b/l PEs, transaminitis, etc. Prognosis is very guarded. Niranjan Pemberton (son-in-law) and his Melvi (patient's daughter) at [phone] this evening. (4) Pulmonary embolism: CTA chest on 02/22 shows acute bilateral PEs. Cont lovenox 70mg [place]12[place] [address] (5) Afib: unknown duration but suspect chronic/permanent but can't prove such. rates controlled without AV letty agents. on lovenox for anticoagulation. echo pending. repeat a TSH sometime this admission. K/mag wnl. (6) Seizure disorder: reported he had a potential seizure earlier this week. Phenytoin level and phenobarbital levels both below therapeutic ranges. Compliance is questionable given his levels. Cont dilantin and phenobarbital as previous. Ativan IV prn. Seizure precautions. (7) Hepatitis: Transaminitis - likely due to COVID-19 infection. Can't rule out other causes. LFT trending down (8) Hyponatremia: resolved Some of his hyponatremia perhaps chronic - SIADH? other? BMP daily (9) Dementia: baseline uncertain but pt's told admitting MD that his memory is poor. appears to have metabolic encephalopathy from COVID as well. oriented to person, says he wants to go home, he is confused easily (10) Metabolic encephalopathy: 2nd to COVID-19 infection, hypoxia, etc. supportive care. (11) DVT prophylaxis: lovenox BID updated Niranjan and Melvi Pemberton at [phone] (daughter to patient and son-in-law) only family members with phone daily phone call to them will be needed prognosis remains guarded DNR Admission and Anticipated Discharge Date Admission Date: February 23, 2020 Subjective patient is sitting up in a chair, he is confused, keeps saying "I just want to go home" no signs of distress, he has a poor appetite he is pulling at lines and IV at times, may need a one to one later today, gets confused easily reviewed chart reviewed labs, DDimer > 74853, Cr and electrolytes are stable updated his family over the phone Review of Systems 2 Review of Systems: All systems reviewed & are unremarkable except as noted in Subjective Constitutional: + fatigue and + weakness; no fever Respiratory: + cough and + dyspnea Cardiovascular: no chest pain Gastrointestinal: no abdominal pain, no nausea, no vomiting, no constipation and no diarrhea/loose stools Physical Exam Constitutional: well developed, well nourished and + frail appearing; no acute distress Neck: trachea midline, no thyromegaly Respiratory: + labored breathing, + uses accessory muscles and + cough; no respiratory distress Auscultation: + diminished lung sounds; no crackles, no rales and no rhonchi Cardiovascular: RRR, no murmur, no edema Gastrointestinal (Abdomen): normal bowel sounds, soft, nontender, no hepatosplenomegaly Musculoskeletal: no cyanosis or clubbing, extremities motor strength 5/5 Skin: no rashes, warm and dry Neurologic: patellar DTR's 2+ bilat, sensation intact and PERRL, EOMI, accommodation nl, no face palsy, no dysarthria Psychiatric: Orientation: alert, oriented to person and + guarded; + not oriented to place and + not oriented to time Lymphatic: no cervical or axillary lymphadenopathy Results & Data Results & Data ([facility]) Vital Signs (Past 12 Hours) Vital Signs Temp Pulse Pulse Resp BP BP Pulse Ox 02/25/20 11:54 37.1 C 89 26 H 120/62 94 02/25/20 11:22 79 24 94 02/25/20 09:00 02/25/20 08:08 36.8 C 85 25 H 124/68 92 02/25/20 08:00 84 02/25/20 07:36 95 H 28 H 95 02/25/20 05:13 37.1 C 77 22 124/66 94 02/25/20 03:32 78 26 H 92 Pulse Ox 02/25/20 11:54 02/25/20 11:22 02/25/20 09:00 91 02/25/20 08:08 02/25/20 08:00 02/25/20 07:36 02/25/20 05:13 02/25/20 03:32 Laboratory Results Laboratory Results - last 24 hr 02/25/20 02/25/20 05:23 05:23 D-Dimer > 37098 H* Sodium 135 L Potassium 3.9 Chloride 103 Carbon Dioxide 26 Anion Gap 6.0 BUN 18 Creatinine 0.64 Est Cr Clr Drug Dosing 79.7 Est GFR ( Amer) 104.2 Est GFR (Non-Af Amer) 89.9 BUN/Creatinine Ratio 28.1 H Glucose 106 H Calcium 8.1 L AST 73 H ALT 84 H Medications Administered Current Inpatient Medications Acetaminophen (Acetaminophen 325 Mg Tab) 650 mg PO Q4H PRN PRN Reason: pain/fever Stop: 03/24/20 16:09 Last Admin: 02/24/20 05:01 Dose: 650 mg Documented by: Azithromycin (Azithromycin 250 Mg Tab) 250 mg PO DAILY@1600 [facility] Stop: 03/02/20 15:59 Last Admin: 02/24/20 15:05 Dose: 250 mg Documented by: Enoxaparin Sodium (Enoxaparin 80 Mg/0.8 Ml Syr) 70 mg SQ Q12H [facility] Stop: 03/25/20 14:29 Last Admin: 02/25/20 01:43 Dose: 70 mg Documented by: Lorazepam (Ativan) 1 mg in 2 mls @ 2 mls/min IV Q4H PRN PRN Reason: Seizure Stop: 03/24/20 16:09 Ceftriaxone Sodium 2,000 mg/ (Dextrose) 70 mls @ 140 mls/hr IV Q24H [facility] Stop: 03/02/20 11:59 Last Infusion: 02/25/20 12:30 Dose: Infused Documented by: Dexamethasone 6 mg/ Syringe 1.5 mls @ 1 mls/min IV QAM [facility] Stop: 03/04/20 08:59 Last Admin: 02/25/20 08:19 Dose: 1 mls/min Documented by: Remdesivir 100 mg/ Sodium (Chloride) 250 mls @ 250 mls/hr IV Q24H [facility]; Protocol Stop: 02/28/20 08:59 Last Infusion: 02/25/20 09:28 Dose: Infused Documented by: Influenza Virus Vaccine Quadrival (Influenza Virus Quad Vaccine 0.5 Ml Syr) 0.5 ml IM .ONCE ONE Stop: 02/26/20 18:01 Lorazepam (Lorazepam 0.5 Mg Tab) 0.5 mg PO TID PRN PRN Reason: anxiety Stop: 03/24/20 16:09 Ondansetron HCl (Ondansetron Inj 2 Mg/Ml 2 Ml Vial) 4 mg IV Q4H PRN PRN Reason: Nausea Stop: 03/24/20 16:09 Phenobarbital (Phenobarbital 32.4 Mg Tab) 64.8 mg PO DAILY@0800 [facility] Stop: 03/25/20 07:59 Last Admin: 02/25/20 09:26 Dose: 64.8 mg Documented by: Phenytoin Sodium (Phenytoin Sodium Er 100 Mg Cap) 100 mg PO DAILY@0800 [facility] Stop: 03/25/20 07:59 Last Admin: 02/25/20 08:18 Dose: 100 mg Documented by: Phenytoin Sodium (Phenytoin Sodium Er 100 Mg Cap) 200 mg PO DAILY@2000 [facility] Stop: 03/24/20 19:59 Last Admin: 02/24/20 20:17 Dose: 200 mg Documented by: Pneumococcal Polyvalent Vaccine (Pneumococcal Polysaccharides 25 Mcg/0.5 Ml Vial/Syr) 25 mcg IM .ONCE ONE Stop: 02/26/20 18:01 Sodium Chloride (Nss 30ml Flush, Days 1-5) 30 ml IV Q24H [facility] Stop: 02/28/20 08:01 Last Admin: 02/25/20 09:28 Dose: 30 ml Documented by: PG Care Time/CCT Total # of Minutes Spent Total Time Spent with Patient: Total time spent is greater than 50% in coordination of care (as documented) at patient's floor/unit and/or counseling patient: Coding Level of Care Code 31919 Subseq Hosp Care Lvl 3 Diagnoses Acute respiratory failure with hypoxia J96.01 Pneumonia due to COVID-19 virus U07.1; J12.89 COVID-19 U07.1 Pulmonary embolism I26.99 Acute cor pulmonale presence: unspecified Chronicity: acute Pulmonary embolism type: unspecified Afib I48.91 Atrial fibrillation type: unspecified Seizure disorder G40.909 Hepatitis K75.9 Hyponatremia E87.1 Dementia F03.90 Metabolic encephalopathy G93.41 DVT prophylaxis Z29.9 (1) Pulmonary embolism Acute cor pulmonale presence: unspecified Chronicity: acute Pulmonary embo lism type: unspecified Qualified Code(s): I26.99 - Other pulmonary embolism without acute cor pulmonale (2) Afib Atrial fibrillation type: unspecified Qualified Code(s): I48.91 - Unspecified atrial fibrillation
[2020-02-25] MEDS: AZITHROMYCIN 250 MG TAB PO SCH (15:49)
[2020-02-26] MEDS: ENOXAPARIN 80 MG/0.8 ML SYR SQ SCH ×2 (02:03→14:20)
[2020-02-26] MEDS: ACETAMINOPHEN 325 MG TAB PO PRN ×2 (02:03→20:38)
[2020-02-26 06:15] LABS: Hematocrit (blood only) 31.7 % (42-52); Hemoglobin 11.1 g/dL (14.0-18.0); Mean Corpuscular Hemoglobin 33.7 pg (25-34); Mean Corpuscular Volume 96.4 fL (80-100); Mean Platelet Volume 10.2 fL (7.4-10.4); Platelet Count 208 K/uL (130-400); RDW Coefficient of Variation 13.4 % (11.5-14.5); RDW Standard Deviation 47.1 fL (36.4-46.3); Red Blood Count 3.29 M/uL (4.7-6.1); White Blood Count 9.86 K/uL (4.8-10.8)
[2020-02-26 06:44] LABS: Albumin Level 1.9 gm/dl (3.4-5.0); BUN Creatinine Ratio 26.7 (10-20); Calcium 8.1 mg/dl (8.5-10.1); Creatinine Clr Calc Pharmacy 78.5 ml/min; Est GFR (African American) 103.5; Est GFR (Non-African American) 89.3; Potassium 3.8 mmol/L (3.5-5.1)
[2020-02-26 06:47] LABS: Albumin Globulin Ratio 0.4 (0.9-2); Bilirubin,Total 0.4 mg/dl (0.2-1); Globulin 4.4 gm/dl (2.5-4.0); Total Protein 6.3 gm/dl (6.4-8.2)
[2020-02-26] MEDS: REMDESIVIR 100mg: Days 2-5 IV SCH (08:22)
[2020-02-26] MEDS: PHENYTOIN SODIUM ER 100 MG CAP PO SCH ×2 (08:22→20:37)
[2020-02-26] MEDS: dexAMETHasone 6 MG in SYRINGE 0 ML IV SCH (08:23)
[2020-02-26] MEDS: NSS 30mL Flush, Days 1-5 IV SCH (08:23)
[2020-02-26] MEDS: cefTRIAXone SODIUM 2,000 MG in DEXTROSE 5% 50 ML IV SCH (12:32)
--- NOTE | 2020-02-26 16:12 | Hospitalist Progress Note ---
Date of Service February 26, 2020 Assessment & Plan (1) Acute respiratory failure with hypoxia: 2nd to severe COVID-19 pneumonia along with PEs. see below. continue high-flow NC, can try to titrate down as tolerated family would like him home on hospice later this week (2) Pneumonia due to COVID-19 virus: severe, extensive b/l pneumonia on imaging and examination. s/p convalescent plasma. day #4 of 10 of decadron 6mg daily. patient received 200mg load of remdesivir on 02/22, continue 100mg daily, finish on 02/26 flutter valve. incentive spirometry. try proning twice daily as tolerated, not going well, he is confused continue Rocephin and Zithromax for 5-7 days total again, plan for home with hospice later this week (3) COVID-19: Severe disease - respiratory failure, extensive pneumonia, b/l PEs, transaminitis, etc. Prognosis is very guarded. Niranjan Pemberton (son-in-law) and his Melvi (patient's daughter) at [phone] (4) Pulmonary embolism: CTA chest on 02/22 shows acute bilateral PEs. Cont lovenox 70mg [place]12[place] [address] will need to be on Xarelto or Coumadin, will need to check on cost of Xarelto (5) Afib: unknown duration but suspect chronic/permanent but can't prove such. rates controlled without AV letty agents. on lovenox for anticoagulation. K/mag wnl. (6) Seizure disorder: reported he had a potential seizure earlier this week. Phenytoin level and phenobarbital levels both below therapeutic ranges. Compliance is questionable given his levels. Cont dilantin and phenobarbital as previous. Ativan IV prn. Seizure precautions. (7) Hepatitis: Transaminitis - likely due to COVID-19 infection. Can't rule out other causes. LFT trending down (8) Hyponatremia: resolved Some of his hyponatremia perhaps chronic - SIADH? other? BMP daily (9) Dementia: baseline uncertain but pt's told admitting MD that his memory is poor. appears to have metabolic encephalopathy from COVID as well. oriented to person, says he wants to go home, he is confused easily (10) Metabolic encephalopathy: 2nd to COVID-19 infection, hypoxia, etc. supportive care. (11) DVT prophylaxis: lovenox BID updated Niranjan and Melvi Pemberton at [phone] (daughter to patient and son-in-law) only family members with phone daily phone call to them will be needed prognosis remains guarded , plan for home with hospice later this week DNR Admission and Anticipated Discharge Date Admission Date: February 23, 2020 Subjective patient waxing and waning today, eating a little better today he is intermittently confused but he keeps saying that he just wants to go home I spoke with the patient's son in law, Niranjan, he and his family would like to get the patient home they agree he should stay for the full course of Remdesivir, discussed a possible discharge to home on Tuesday, he agreed patient does not really have any complaints, he is pleasant Review of Systems Review of Systems: All systems reviewed & are unremarkable except as noted in Subjective Physical Exam Constitutional: well developed, well nourished and + frail appearing; no acute distress Neck: trachea midline, no thyromegaly Respiratory: + labored breathing, + uses accessory muscles and + cough; no respiratory distress Auscultation: + diminished lung sounds; no crackles, no rales and no rhonchi Cardiovascular: RRR, no murmur, no edema Gastrointestinal (Abdomen): normal bowel sounds, soft, nontender, no hepatosplenomegaly Musculoskeletal: no cyanosis or clubbing, extremities motor strength 5/5 Skin: no rashes, warm and dry Neurologic: patellar DTR's 2+ bilat, sensation intact and PERRL, EOMI, accommodation nl, no face palsy, no dysarthria Psychiatric: Orientation: alert, oriented to person and + guarded; + not oriented to place and + not oriented to time Lymphatic: no cervical or axillary lymphadenopathy Results & Data Results & Data ([facility]) Vital Signs (Past 12 Hours) Vital Signs Temp Pulse Pulse Resp BP Pulse Ox Pulse Ox 02/26/20 15:55 36.8 C 115 H 23 131/73 92 02/26/20 15:18 96 H 28 H 89 L 02/26/20 11:42 37.2 C 98 H 23 117/67 95 02/26/20 11:28 105 H 22 94 02/26/20 08:14 36.8 C 83 18 114/62 91 02/26/20 08:00 90 91 02/26/20 07:31 77 20 92 02/26/20 04:50 77 20 90 Laboratory Results Laboratory Results - last 24 hr 02/26/20 02/26/20 05:32 05:32 WBC 9.86 RBC 3.29 L Hgb 11.1 L Hct 31.7 L MCV 96.4 MCH 33.7 MCHC 35.0 RDW Std Deviation 47.1 H RDW Coeff of Theron 13.4 Plt Count 208 MPV 10.2 Sodium 135 L Potassium 3.8 Chloride 103 Carbon Dioxide 26 Anion Gap 6.0 BUN 17 Creatinine 0.65 Est Cr Clr Drug Dosing 78.5 Est GFR ( Amer) 103.5 Est GFR (Non-Af Amer) 89.3 BUN/Creatinine Ratio 26.7 H Glucose 113 H Calcium 8.1 L Total Bilirubin 0.4 AST 92 H ALT 80 H Alkaline Phosphatase 101 Total Protein 6.3 L Albumin 1.9 L Globulin 4.4 H Albumin/Globulin Ratio 0.4 L Medications Administered Current Inpatient Medications Acetaminophen (Acetaminophen 325 Mg Tab) 650 mg PO Q4H PRN PRN Reason: pain/fever Stop: 03/24/20 16:09 Last Admin: 02/26/20 02:03 Dose: 650 mg Documented by: Azithromycin (Azithromycin 250 Mg Tab) 250 mg PO DAILY@1600 [facility] Stop: 03/02/20 15:59 Last Admin: 02/25/20 15:49 Dose: 250 mg Documented by: Enoxaparin Sodium (Enoxaparin 80 Mg/0.8 Ml Syr) 70 mg SQ Q12H [facility] Stop: 03/25/20 14:29 Last Admin: 02/26/20 14:20 Dose: 70 mg Documented by: Lorazepam (Ativan) 1 mg in 2 mls @ 2 mls/min IV Q4H PRN PRN Reason: Seizure Stop: 03/24/20 16:09 Ceftriaxone Sodium 2,000 mg/ (Dextrose) 70 mls @ 140 mls/hr IV Q24H [facility] Stop: 03/02/20 11:59 Last Infusion: 02/26/20 13:20 Dose: Infused Documented by: Dexamethasone 6 mg/ Syringe 1.5 mls @ 1 mls/min IV QAM [facility] Stop: 03/04/20 08:59 Last Admin: 02/26/20 08:23 Dose: 1 mls/min Documented by: Remdesivir 100 mg/ Sodium (Chloride) 250 mls @ 250 mls/hr IV Q24H [facility]; Protocol Stop: 02/28/20 08:59 Last Infusion: 02/26/20 09:45 Dose: Infused Documented by: Influenza Virus Vaccine Quadrival (Influenza Virus Quad Vaccine 0.5 Ml Syr) 0.5 ml IM .ONCE ONE Stop: 02/26/20 18:01 Lorazepam (Lorazepam 0.5 Mg Tab) 0.5 mg PO TID PRN PRN Reason: anxiety Stop: 03/24/20 16:09 Ondansetron HCl (Ondansetron Inj 2 Mg/Ml 2 Ml Vial) 4 mg IV Q4H PRN PRN Reason: Nausea Stop: 03/24/20 16:09 Phenobarbital (Phenobarbital 32.4 Mg Tab) 64.8 mg PO DAILY@0800 [facility] Stop: 03/25/20 07:59 Last Admin: 02/26/20 08:22 Dose: 64.8 mg Documented by: Phenytoin Sodium (Phenytoin Sodium Er 100 Mg Cap) 100 mg PO DAILY@0800 [facility] Stop: 03/25/20 07:59 Last Admin: 02/26/20 08:22 Dose: 100 mg Documented by: Phenytoin Sodium (Phenytoin Sodium Er 100 Mg Cap) 200 mg PO DAILY@2000 [facility] Stop: 03/24/20 19:59 Last Admin: 02/25/20 20:32 Dose: 200 mg Documented by: Pneumococcal Polyvalent Vaccine (Pneumococcal Polysaccharides 25 Mcg/0.5 Ml Vial/Syr) 25 mcg IM .ONCE ONE Stop: 02/26/20 18:01 Sodium Chloride (Nss 30ml Flush, Days 1-5) 30 ml IV Q24H [facility] Stop: 02/28/20 08:01 Last Admin: 02/26/20 08:23 Dose: 30 ml Documented by: PG Care Time/CCT Total # of Minutes Spent Total Time Spent with Patient: Total time spent is greater than 50% in coordination of care (as documented) at patient's floor/unit and/or counseling patient: Coding Level of Care Code 37904 Subseq Hosp Care Lvl 3 Diagnoses Acute respiratory failure with hypoxia J96.01 Pneumonia due to COVID-19 virus U07.1; J12.89 COVID-19 U07.1 Pulmonary embolism I26.99 Acute cor pulmonale presence: unspecified Chronicity: acute Pulmonary embolism type: unspecified Afib I48.91 Atrial fibrillation type: unspecified Seizure disorder G40.909 Hepatitis K75.9 Hyponatremia E87.1 Dementia F03.90 Metabolic encephalopathy G93.41 DVT prophylaxis Z29.9 (1) Afib Atrial fibrillation type: unspecified Qualified Code(s): I48.91 - Unspecified atrial fibrillation (2) Pulmonary embolism Acute cor pulmonale presence: unspecified Chronicity: acute Pulmonary embolism type: unspecified Qualified Code(s): I26.99 - Other pulmonary embolism without acute cor pulmonale
[2020-02-26] MEDS: AZITHROMYCIN 250 MG TAB PO SCH (16:41)
[2020-02-26] MEDS ORDERED: INFLUENZA VIRUS QUAD VACCINE 0.5 ML SYR IM ONE (18:00)
[2020-02-26] MEDS ORDERED: INFLUENZA ADMINISTRATION CHARGE ONE (18:00)
[2020-02-26] MEDS ORDERED: PNEUMOCOCCAL POLYSACCHARIDES 25 MCG/0.5 ML VIAL/SYR IM ONE (18:00)
[2020-02-26] MEDS ORDERED: PNEUMOCOCCAL ADMINISTRATION CHARGE ONE (18:00)
[2020-02-27] MEDS: ENOXAPARIN 80 MG/0.8 ML SYR SQ SCH ×2 (01:30→15:18)
[2020-02-27 06:55] LABS: Hematocrit (blood only) 34.8 % (42-52); Hemoglobin 11.9 g/dL (14.0-18.0); Mean Corpuscular Hemoglobin 33.2 pg (25-34); Mean Corpuscular Hgb Conc 34.2 g/dL (32-36); Mean Corpuscular Volume 97.2 fL (80-100); Mean Platelet Volume 10.1 fL (7.4-10.4); Platelet Count 229 K/uL (130-400); RDW Coefficient of Variation 13.4 % (11.5-14.5); RDW Standard Deviation 47.9 fL (36.4-46.3); Red Blood Count 3.58 M/uL (4.7-6.1); White Blood Count 10.92 K/uL (4.8-10.8)
[2020-02-27 07:25] LABS: Albumin Level 1.8 gm/dl (3.4-5.0); BUN Creatinine Ratio 24.2 (10-20); Calcium 8.5 mg/dl (8.5-10.1); Est GFR (African American) 104.9; Est GFR (Non-African American) 90.5; Potassium 3.7 mmol/L (3.5-5.1)
[2020-02-27 07:28] LABS: Albumin Globulin Ratio 0.4 (0.9-2); Bilirubin,Total 0.3 mg/dl (0.2-1); Globulin 4.6 gm/dl (2.5-4.0); Total Protein 6.4 gm/dl (6.4-8.2)
[2020-02-27] MEDS: PHENYTOIN SODIUM ER 100 MG CAP PO SCH ×2 (08:33→20:30)
[2020-02-27] MEDS: REMDESIVIR 100mg: Days 2-5 IV SCH (08:33)
[2020-02-27] MEDS: dexAMETHasone 6 MG in SYRINGE 0 ML IV SCH (08:34)
[2020-02-27] MEDS: NSS 30mL Flush, Days 1-5 IV SCH (08:34)
[2020-02-27] MEDS: cefTRIAXone SODIUM 2,000 MG in DEXTROSE 5% 50 ML IV SCH (12:44)
[2020-02-27] MEDS: AZITHROMYCIN 250 MG TAB PO SCH (15:18)
--- NOTE | 2020-02-27 16:22 | Hospitalist Progress Note ---
Date of Service February 27, 2020 Assessment & Plan (1) Acute respiratory failure with hypoxia: 2nd to severe COVID-19 pneumonia along with PEs. see below. tolerating NRB at 15L today, he is more lethargic, eating less discussed with son in law that I am not sure we can provide that much oxygen through hospice he understands (2) Pneumonia due to COVID-19 virus: severe, extensive b/l pneumonia on imaging and examination. s/p convalescent plasma. day #5 of 10 of decadron 6mg daily. patient received 200mg load of remdesivir on 02/22, continue 100mg daily, finish today flutter valve. incentive spirometry. try proning twice daily as tolerated, not going well, he is confused continue Rocephin and Zithromax, today is day 5, no antibiotics need on discharge again, plan for home with hospice tomorrow if possible (3) COVID-19: Severe disease - respiratory failure, extensive pneumonia, b/l PEs, transaminitis, etc. Prognosis is very guarded. home tomorrow with hospice if everything can be arranged Niranjan Pemberton (son-in-law) and his Melvi (patient's daughter) at [phone] (4) Pulmonary embolism: CTA chest on 02/22 shows acute bilateral PEs. Cont lovenox 70mg SC [place]12[place] [address] will need to be on Xarelto or Coumadin, will need to check on cost of Xarelto case management working on coverage for Xarelto (5) Afib: unknown duration but suspect chronic/permanent but can't prove such. rates controlled without AV letty agents. on lovenox for anticoagulation. K/mag wnl. (6) Seizure disorder: reported he had a potential seizure earlier this week. Phenytoin level and phenobarbital levels both below therapeutic ranges. Compliance is questionable given his levels. Cont dilantin and phenobarbital as previous. Ativan IV prn. Seizure precautions. (7) Hepatitis: Transaminitis - likely due to COVID-19 infection. Can't rule out other causes. LFT trending down (8) Hyponatremia: resolved Some of his hyponatremia perhaps chronic - SIADH? other? BMP daily (9) Dementia: baseline uncertain but pt's told admitting MD that his memory is poor. appears to have metabolic encephalopathy from COVID as well. oriented to person, says he wants to go home, he is confused easily (10) Metabolic encephalopathy: 2nd to COVID-19 infection, hypoxia, etc. supportive care. (11) DVT prophylaxis: lovenox BID updated Niranjan and Melvi Garciafus at [phone] (daughter to patient and son-in-law) only family members with phone daily phone call to them will be needed prognosis remains guarded , plan for home with hospice tomorrow DNR Admission and Anticipated Discharge Date Admission Date: February 23, 2020 Subjective patient is stable on non rebreather today he is eating less, more lethargic spoke with his family, they are interested in getting him home on hospice tomorrow if possible spoke with patient case manager, working on making it happen discussed that we will need oxygen, will need Xarelto coverage patient just wants to go home Review of Systems Review of Systems: All systems reviewed & are unremarkable except as noted in Subjective Constitutional: + fatigue and + weakness; no fever Respiratory: + cough, + dyspnea and + dyspnea on exertion; no sputum production and no wheezing Cardiovascular: no chest pain and no edema Gastrointestinal: + early satiety; no abdominal pain, no nausea, no vomiting, no constipation and no diarrhea/loose stools Physical Exam Constitutional: well developed, + ill appearing and + frail appearing; no acute distress Neck: trachea midline, no thyromegaly Respiratory: + labored breathing, + uses accessory muscles and + cough; no respiratory distress Auscultation: + diminished lung sounds; no crackles, no rales and no rhonchi Cardiovascular: RRR, no murmur, no edema Gastrointestinal (Abdomen): normal bowel sounds, soft, nontender, no hepatosplenomegaly Musculoskeletal: no cyanosis or clubbing, extremities motor strength 5/5 Skin: no rashes, warm and dry Neurologic: patellar DTR's 2+ bilat, sensation intact and PERRL, EOMI, accommodation nl, no face palsy, no dysarthria Psychiatric: Orientation: alert, oriented to person and + guarded; + not orie nted to place and + not oriented to time Lymphatic: no cervical or axillary lymphadenopathy Results & Data Results & Data ([facility]) Vital Signs (Past 12 Hours) Vital Signs Temp Pulse Resp BP BP Pulse Ox Pulse Ox 02/27/20 12:24 37.4 C 102 H 24 109/68 93 02/27/20 08:00 94 02/27/20 07:55 37.0 C 106 H 22 133/74 88 L 02/27/20 04:50 37 C 98 H 24 138/73 89 L Laboratory Results Laboratory Results - last 24 hr 02/27/20 02/27/20 06:18 06:18 WBC 10.92 H RBC 3.58 L Hgb 11.9 L Hct 34.8 L MCV 97.2 MCH 33.2 MCHC 34.2 RDW Std Deviation 47.9 H RDW Coeff of Theron 13.4 Plt Count 229 MPV 10.1 Sodium 137 Potassium 3.7 Chloride 104 Carbon Dioxide 27 Anion Gap 6.0 BUN 15 Creatinine 0.63 Est Cr Clr Drug Dosing 81.0 Est GFR ( Amer) 104.9 Est GFR (Non-Af Amer) 90.5 BUN/Creatinine Ratio 24.2 H Glucose 109 H Calcium 8.5 Total Bilirubin 0.3 AST 80 H ALT 72 Alkaline Phosphatase 100 Total Protein 6.4 Albumin 1.8 L Globulin 4.6 H Albumin/Globulin Ratio 0.4 L Medications Administered Current Inpatient Medications Acetaminophen (Acetaminophen 325 Mg Tab) 650 mg PO Q4H PRN PRN Reason: pain/fever Stop: 03/24/20 16:09 Last Admin: 02/26/20 20:38 Dose: 650 mg Documented by: Azithromycin (Azithromycin 250 Mg Tab) 250 mg PO DAILY@1600 [facility] Stop: 03/02/20 15:59 Last Admin: 02/27/20 15:18 Dose: 250 mg Documented by: Enoxaparin Sodium (Enoxaparin 80 Mg/0.8 Ml Syr) 70 mg SQ Q12H [facility] Stop: 03/25/20 14:29 Last Admin: 02/27/20 15:18 Dose: 70 mg Documented by: Lorazepam (Ativan) 1 mg in 2 mls @ 2 mls/min IV Q4H PRN PRN Reason: Seizure Stop: 03/24/20 16:09 Ceftriaxone Sodium 2,000 mg/ (Dextrose) 70 mls @ 140 mls/hr IV Q24H [facility] Stop: 03/02/20 11:59 Last Infusion: 02/27/20 13:08 Dose: Infused Documented by: Dexamethasone 6 mg/ Syringe 1.5 mls @ 1 mls/min IV QAM [facility] Stop: 03/04/20 08:59 Last Admin: 02/27/20 08:34 Dose: 1 mls/min Documented by: Remdesivir 100 mg/ Sodium (Chloride) 250 mls @ 250 mls/hr IV Q24H [facility]; Protocol Stop: 02/28/20 08:59 Last Infusion: 02/27/20 09:47 Dose: Infused Documented by: Lorazepam (Lorazepam 0.5 Mg Tab) 0.5 mg PO TID PRN PRN Reason: anxiety Stop: 03/24/20 16:09 Ondansetron HCl (Ondansetron Inj 2 Mg/Ml 2 Ml Vial) 4 mg IV Q4H PRN PRN Reason: Nausea Stop: 03/24/20 16:09 Phenobarbital (Phenobarbital 32.4 Mg Tab) 64.8 mg PO DAILY@0800 [facility] Stop: 03/25/20 07:59 Last Admin: 02/27/20 09:01 Dose: 64.8 mg Documented by: Phenytoin Sodium (Phenytoin Sodium Er 100 Mg Cap) 100 mg PO DAILY@0800 [facility] Stop: 03/25/20 07:59 Last Admin: 02/27/20 08:33 Dose: 100 mg Documented by: Phenytoin Sodium (Phenytoin Sodium Er 100 Mg Cap) 200 mg PO DAILY@1999 [facility] Stop: 03/24/20 19:59 Last Admin: 02/26/20 20:37 Dose: 200 mg Documented by: Sodium Chloride (Nss 30ml Flush, Days 1-5) 30 ml IV Q24H [facility] Stop: 02/28/20 08:01 Last Admin: 02/27/20 08:34 Dose: 30 ml Documented by: PG Care Time/CCT Total # of Minutes Spent Total Time Spent with Patient: Total time spent is greater than 50% in coordination of care (as documented) at patient's floor/unit and/or counseling patient: Coding Level of Care Code 38959 Subseq Hosp Care Lvl 3 Diagnoses Acute respiratory failure with hypoxia J96.01 Pneumonia due to COVID-19 virus U07.1; J12.89 COVID-19 U07.1 Pulmonary embolism I26.99 Acute cor pulmonale presence: unspecified Chronicity: acute Pulmonary embolism type: unspecified Afib I48.91 Atrial fibrillation type: unspecified Seizure disorder G40.909 Hepatitis K75.9 Hyponatremia E87.1 Dementia F03.90 Metabolic encephalopathy G93.41 DVT prophylaxis Z29.9 (1) Afib Atrial fibrillation type: unspecified Qualified Code(s): I48.91 - Unspecified atrial fibrillation (2) Pulmonary embolism Acute cor pulmonale presence: unspecified Chronicity: acute Pulmonary embolism type: unspecified Qualified Code(s): I26.99 - Other pulmonary embolism without acute cor pulmonale
[2020-02-27] MEDS: ACETAMINOPHEN 325 MG TAB PO PRN (20:30)
[2020-02-28] MEDS: ENOXAPARIN 80 MG/0.8 ML SYR SQ SCH ×2 (03:04→15:02)
[2020-02-28 06:20] LABS: Hematocrit (blood only) 38.6 % (42-52); Hemoglobin 13.3 g/dL (14.0-18.0); Mean Corpuscular Hemoglobin 33.8 pg (25-34); Mean Corpuscular Hgb Conc 34.5 g/dL (32-36); Mean Platelet Volume 10.9 fL (7.4-10.4); Platelet Count 183 K/uL (130-400); RDW Coefficient of Variation 13.7 % (11.5-14.5); RDW Standard Deviation 48.6 fL (36.4-46.3); Red Blood Count 3.94 M/uL (4.7-6.1); White Blood Count 10.67 K/uL (4.8-10.8)
[2020-02-28 06:55] LABS: Albumin Level 1.8 gm/dl (3.4-5.0); BUN Creatinine Ratio 29.2 (10-20); Calcium 8.9 mg/dl (8.5-10.1); Creatinine Clr Calc Pharmacy 78.5 ml/min; Est GFR (African American) 103.5; Est GFR (Non-African American) 89.3
[2020-02-28 06:58] LABS: Albumin Globulin Ratio 0.3 (0.9-2); Bilirubin,Total 0.3 mg/dl (0.2-1); Globulin 5.2 gm/dl (2.5-4.0)
[2020-02-28] MEDS: REMDESIVIR 100mg: Days 2-5 IV SCH (08:35)
[2020-02-28] MEDS: PHENYTOIN SODIUM ER 100 MG CAP PO SCH (08:35)
[2020-02-28] MEDS: dexAMETHasone 6 MG in SYRINGE 0 ML IV SCH (09:15)
[2020-02-28] MEDS: NSS 30mL Flush, Days 1-5 IV SCH (09:40)
[2020-02-28] MEDS: cefTRIAXone SODIUM 2,000 MG in DEXTROSE 5% 50 ML IV SCH (12:10)
[2020-02-28] MEDS: AZITHROMYCIN 250 MG TAB PO SCH (16:15)
--- NOTE | 2020-02-28 16:25 | Discharge Summary ---
Date of Service February 28, 2020 Admission HPI Per Admitting Provider 84yo M w/ hx of seizures who presents for Covid pneumonia. He has dementia and a poor historian. Per report from the ED provider who gathered the history from his , he had not been feeling well for about 1 week, then this morning reported increasing shortness of breath and was brought to the hospital. Initially, it sounds as though he was fairly lethargic, though he was able to wake up for me. He was able to tell me he was in a hospital in [place] and his name. He denies fevers or chills, but does report shortness of breath that he denies has significantly improved while on BiPap. I was unable to speak to the because she does not have access to a telephone in her house, but did confirm these details with one of his daughters and son-in-law. Principal Diagnosis Acute hypoxic respiratory failure secondary to COVID 19 pneumonia Discharge Exam Constitutional well developed, + ill appearing and + frail appearing; no acute distress Neck trachea midline, no thyromegaly Respiratory + labored breathing, + uses accessory muscles and + cough; no respiratory distress Auscultation: + diminished lung sounds; no crackles, no rales and no rhonchi Cardiovascular RRR, no murmur, no edema Gastrointestinal (Abdomen) normal bowel sounds, soft, nontender, no hepatosplenomegaly Musculoskeletal no cyanosis or clubbing, extremities motor strength 5/5 Neurologic patellar DTR's 2+ bilat, sensation intact and PERRL, EOMI, accommodation nl, no face palsy, no dysarthria Psychiatric Orientation: alert, oriented to person and + guarded; + not oriented to place and + not oriented to time Discharge Data Allergies Allergy/AdvReac Type Severity Reaction Status Date / Time No Known Allergies Allergy Verified 06/01/19 14:34 Consultations 02/23/20 13:36 ED Decision to Admit Stat Ordered Studies 02/23/20 13:16 CT angio chest PE protocol Stat CT head/brain wo con Stat Hospital Course (1) Acute respiratory failure with hypoxia: 2nd to severe COVID-19 pneumonia along with PEs. see below. tolerating NRB at 15L today, he is more lethargic, eating less discussed with son in law, plan to get him home and continue on hospice family understands that it is unlikely we can provide him with enough oxygen Roxanol for pain (2) Pneumonia due to COVID-19 virus: severe, extensive b/l pneumonia on imaging and examination. s/p convalescent plasma. day #6 of 10 of decadron 6mg daily. patient received 200mg load of remdesivir on 02/22, continue 100mg daily, finished 02/26 flutter valve. incentive spirometry. try proning twice daily as tolerated, not going well, he is confused continue Rocephin and Zithromax, today is day 6, no antibiotics need on discharge plan for home with hospice family is prepared (3) COVID-19: Severe disease - respiratory failure, extensive pneumonia, b/l PEs, transaminitis, etc. Prognosis is very guarded. home today with hospice Niranjan Pemberton (son-in-law) and his Melvi (patient's daughter) at [phone] (4) Pulmonary embolism: CTA chest on 02/22 shows acute bilateral PEs. Cont lovenox 70mg [place]12[place] [address] discussed with family, life expectancy is a few days due to severity of illness no need to continue anticoagulation on discharge (5) Afib: unknown duration but suspect chronic/permanent but can't prove such. rates controlled without AV letty agents. on lovenox for anticoagulation. K/mag wnl. (6) Seizure disorder: reported he had a potential seizure earlier this week. Phenytoin level and phenobarbital levels both below therapeutic ranges. Compliance is questionable given his levels. Cont dilantin and phenobarbital as previous. Ativan IV prn. Seizure precautions. (7) Hepatitis: Transaminitis - likely due to COVID-19 infection. Can't rule out other causes. LFT trending down (8) Hyponatremia: resolved Some of his hyponatremia perhaps chronic - SIADH? other? BMP daily (9) Dementia: baseline uncertain but pt's told admitting MD that his memory is poor. appears to have metabolic encephalopathy from COVID as well. oriented to person, says he wants to go home, he is confused easily (10) Metabolic encephalopathy: 2nd to COVID-19 infection, hypoxia, etc. supportive care. Total Time Total Time Spent Total Time Spent (In Minutes): 32 minutes Total Time Includes: Examination of the Patient, Discharge Planning, Medication Reconciliation and Other (discussion with family over the phone) Discharge Plan Discharge Items Patient Disposition: Hospice - Home Reason For Visit: COVID-19 PNEUMONIA Discharge Diagnosis: COVID 19 pneumonia Acute hypoxic respiratory failure Condition on Discharge: Serious Goals: provide comfort care at home Activity: Per Instructions section Activity Comment: bedrest Non-emergency contact: Primary Care Provider Call non-emergency contact if: you have any medication questions and your symptoms worsen Follow-up/Referrals: Anne Escobar CRNP [Primary Care Provider] - (no need for follow up, hospice care) Diet: Regular Diet Comment: not eating past two days Addtl Attending Provider Instructions: Medications: - MORPHINE: liquid morphine, take 2.5mL as needed for discomfort with shortness of breath, can increase to 5mL or more as needed, discuss with hospice agency - ATIVAN: 0.5mg every 6 hours as needed for anxiety/agitation COVID 19 pneumonia, severe hypoxia, bilateral pulmonary emboli doing worse the past two days, not eating, more short of breath sleeping all day goal is to keep him comfortable with liquid morphine and ativan can try to give him seizure medications but he may not be able to take them no need for anticoagulation as comfort is goal use oxygen for comfort as well Pending Studies at Discharge: No Stand-Alone Forms: My [facility] Medications and DC Order Prescriptions: New lorazepam 0.5 mg Tablet 0.5 mg PO Q6H PRN (Reason: anxiety) 30 Days Qty: 60 RF: 0 morphine 10 mg/5 mL solution 5 mg PO Q6H PRN (Reason: dyspnea) Qty: 100 RF: 0 Continued phenobarbital 32.4 mg tablet 64.8 mg PO DAILY Qty: 60 RF: 5 phenytoin sodium extended 100 mg capsule 200 mg PO QPM RF: 0 phenytoin sodium extended 100 mg capsule 100 mg PO QAM RF: 0 Discontinued melatonin-pyridoxal phos (B6) [Melatonin-B6 (pyridoxal phos)] 2.5 mg- 338 mcg tablet, sublingual 1 tab sublingual QPM PRN (Reason: Insomnia) RF: 0 lorazepam 0.5 mg tablet 0.5 mg PO DAILY PRN (Reason: anxiety) Qty: 30 RF: 0 Discharge Orders: Discharge Order (Routine); Ordered 02/28/20 Ordered By: Thai Mao Admission Data Admit Date/Time: 02/23/20 14:45 Attending Provider: Thai Mao Admit Provider: Rikki Bolivar Primary Care Provider: Anne Escobar Other Providers: Rikki Bolivar ; [facility] Other Interventions: Discharge Summary Assessment (RN) Last Done: 02/28/20 16:19 Coding Level of Care Code D/C Day Management >30 mins Diagnoses Acute respiratory failure with hypoxia J96.01 Pneumonia due to COVID-19 virus U07.1; J12.89 COVID-19 U07.1 Pulmonary embolism I26.99 Acute cor pulmonale presence: unspecified Chronicity: acute Pulmonary embolism type: unspecified Afib I48.91 Atrial fibrillation type: unspecified Seizure disorder G40.909 Hepatitis K75.9 Hyponatremia E87.1 Dementia F03.90 Metabolic encephalopathy G93.41
== END 2020-02-28 19:11 | disposition hospice, home (50) | DRG 177 ==
LOC: ED 11:36 → SUATTDRO 14:45 → 2E 14:45 → 2S 02-26 19:27